=== PATIENT | female | born 1960 | race Caucasian/White ===

== ENCOUNTER 2016-09-21 08:04 | Inpatient (IN) | payer OTHER ==
[2016-09-20 14:39] LABS: HEMATOCRIT 40.1 % (36.0-48.0); HEMOGLOBIN 13.7 g/dL (12.0-16.0)
--- NOTE | ~2016-09-21 | OP ---
Record Of Operation [facility] [address] [place]. [address] NAME: KERRI ORTIZ : 60 STATUS : ADM IN PAT#: [id number] AGE: 55 ADM/REG DATE : 09/21/16 MR#: [id number] REPORT SERV DATE: 09/23/16 DICTATED BY: KATHYA PARIS DATE: 09/22/16 REPORT STATUS : Draft TRANSCRIBED BY: MODL DATE: 09/22/16 DATE OF PROCEDURE: 09/21/2016 PREOPERATIVE DIAGNOSIS: Cecal mass. POSTOPERATIVE DIAGNOSIS: Cecal mass. SURGEON: Kathya Paris MD [employer]IC: Patience Blanchard MD PROCEDURE: Laparoscopic right hemicolectomy. COMPLICATIONS: None. IV FLUIDS: 1250 mL of crystalloid. ESTIMATED BLOOD LOSS: 40 mL. URINE OUTPUT: 250 mL. SPECIMENS: 1. Right colon and distal ileum. 2. Final margins from the staple line. INDICATIONS: This is a 55-year-old female who on her first colonoscopy was found to have some sort of mass effect in the cecum. Biopsies were benign, but a CT scan suggested some sort of submucosal mass. She presented for the above-mentioned procedure. She understood the risks of bleeding, infection, damage to intraabdominal structures, need for further procedures, the risk of anesthetic agents, and she verbalized her willingness to proceed. PROCEDURE IN DETAIL: Preoperatively, the patient was definitively identified in the holding area. It was confirmed that a signed consent was on chart. The patient was then transferred to the operating room and placed supine on the operating room table with the both arms tucked and appropriate padding to all pressure points. After appropriate surgical pause, general endotracheal anesthesia, perioperative antibiotics, and subcutaneous heparin were administered by Anesthesia team. ERAS principles were followed for this case. Don catheter was placed. The patient was carefully strapped to the table with appropriate padding. She was prepped and draped in a normal sterile fashion. After infusion of local anesthetic, a 12-mm supraumbilical incision was performed sharply. The fascia was grasped and elevated, and the abdomen was entered sharply. A 12-mm trocar was placed, and the abdomen was insufflated to 15 mmHg pressure. A 10-mm 30-degree scope was inserted, and the abdomen was completely inspected. There was no evidence of any metastatic disease in the abdomen. It did appear that the area of the mass in her cecum was mostly the appendix. It appeared large and mucin filled. I briefly considered doing a partial cecectomy for diagnostic purposes, but there was also a slight abnormality in the medial aspect of her Record Of Operation [facility] [address] [place]. [address] NAME: KERRI ORTIZ : 60 STATUS : ADM IN PAT#: [id number] AGE: 55 ADM/REG DATE : 09/21/16 MR#: [id number] REPORT SERV DATE: 09/23/16 DICTATED BY: KATHYA PARIS DATE: 09/22/16 REPORT STATUS : Draft TRANSCRIBED BY: MODDu DATE: 09/22/16 cecum distal to the ileocecal valve, and therefore, I decided that a formal oncologic resection needed to be done. The white line of Toldt was taken down and the cecum was grasped and elevated upward. The base of the mesentery was incised, and due to the fact the patient was fairly skinny, the duodenum was immediately evident. The right ureter was identified and preserved. The areolar plane anterior to the sweep of the duodenum was incised and this completed our mobilization of the cecum, which then rested in the left upper quadrant. I completed takedown of the hepatic flexure using the Bovie electrocautery. The ileocolic pedicle was then isolated and divided with LigaSure electrocautery. This was done as proximally as possible, immediately adjacent to the duodenum. Despite that fact, she does not have much fatty tissue at all and I will be surprised to see how many lymph nodes are collected and a small amount of the additional mesentery was divided with LigaSure electrocautery. We confirmed adequate length. The supraumbilical incision was enlarged while the two previously placed 5 mm trocars remained in position. A wound protector was placed, and through one of the 5 mm incisions, we had previously grasped the cecum and it was now handed to a Akte clamp placed through the wound protector. The specimen was exteriorized without difficulty. We selected a spot about 10 cm away from the abnormalities in the cecum and divided first the distal ileum with a 75 mm blue load CANDIDA stapler. The mesentery was divided with the LigaSure electrocautery. There was excellent blood supply. We then divided the ascending colon likewise about 10 cm from the specimen with a single firing of a blue load CANDIDA stapler from [id number] fashion ending with one of the tenia at the apex of the staple line. After dividing the mesentery at this area, the specimen was handed off the field and the pathologist opened it, with findings as mentioned above. We performed our anastomosis and stapled [id number] functional end-to-end fashion. The antimesenteric aspect of the bowel loops were aligned and the apices of the staple lines were trimmed off and a single firing of the 75 mm blue load CANDIDA stapler was fired in longitudinal fashion to perform the longitudinal aspect of the anastomosis. We inspected internally and confirmed no bleeding. The common channel was clamped closed with the staple lines slightly offset with Kate clamp. Due to the size of the colon, it required two firings of the CANDIDA stapler to completely excise the previous staple line and prevent multiple crossings of the staple line. Both surgeons changed gloves, and all the dirty instruments were passed off the field. We palpated the anastomosis, and it was widely patent. 3-0 silk Lembert sutures were placed on all visible staple lines and this also provided hemostasis for some bleeding of the staple line. The anastomosis was returned to the abdomen and the greater omentum was placed over it. After final confirmation of hemostasis, the wound was closed with #1 PDS suture in running fashion. The wound was rinsed out. The two 5 mm trocar sites were closed with 4-0 Monocryl, followed by Dermabond. Midline wound was closed with buried 3-0 Vicryl dermal stitches, followed by dry dressing and tape. The patient was extubated and transferred to the postanesthesia care unit in stable condition. There were no intraoperative complications, and I was present for the entire procedure. ECN/MODL Kathya Paris MD Record Of Operation [address] [place]. [address] NAME: KERRI ORTIZ : 60 STATUS : ADM IN [facility] WITH [facility]#: [id number] AGE: 55 ADM/REG DATE : 09/21/16 MR#: [id number] REPORT SERV DATE: 09/23/16 DICTATED BY: KATHYA PARIS DATE: 09/22/16 REPORT STATUS : Draft TRANSCRIBED BY: AVA DATE: 09/22/16 / [id number] CC: MD ELLA Ann CHRISTOPHER J.
--- NOTE | ~2016-09-21 | DS ---
Discharge Summary [facility] [address] [place]. [address] NAME: KERRI ORTIZ : 60 STATUS : DIS IN PAT#: [id number] AGE: 55 ADM/REG DATE : 09/21/16 MR#: [id number] REPORT SERV DATE: 10/01/16 DICTATED BY: KATHYA PARIS DATE: 10/01/16 REPORT STATUS : Draft TRANSCRIBED BY: AVA DATE: 10/01/16 Data Collection from hospitalization DISCHARGE DIAGNOSES: 1. Cecal mass. 2. Hypothyroidism. CONSULTATIONS: None. PROCEDURES PERFORMED: Laparoscopic right hemicolectomy on 09/21/2016. 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 Colon and ileum final margin - no tumor seen. MEDICATIONS: Levothyroxine 112 mcg daily and Roxicodone 5 mg every four hours as needed. CONDITION AT DISCHARGE: Stable. DISPOSITION: The patient was discharged home on a soft, vegetarian diet with activities as instructed. She would follow up with me on 10/04/2016. HOSPITAL COURSE: This is a 55-year-old female who on her first colonoscopy was found to have some sort of mass effect in the cecum. Biopsies were benign. A CT scan suggested some sort of submucosal mass. Treatment options were discussed and it was elected to proceed with surgical intervention. She was admitted to the hospital for further evaluation and treatment. Upon admission, she was taken to the operating room where she underwent the above-mentioned procedure. She tolerated this well, and there were no complications. On postop day #1, she was afebrile. She looked good. Her abdomen was soft. She was started on a liquid diet. On postop day #2, she did have a bloody bowel movement, but these stopped. Her incisions were clean, dry, and intact. Discharge planning was performed. On 09/24/2016, she was tolerating oral intake. Discharge instructions were given. Pathology results were reviewed. Due to her improved and stable condition, she was discharged home with the above- stated instructions. Information collected by: Valerie Booker I submit the above information as my discharge summary. PAULETTE/AVA Kathya Paris MD / [id number] CC: Kathya Paris MD Discharge Summary [address] [address] NAME: KERRI ORTIZ : 60 STATUS : DIS IN PAT#: [id number] AGE: 55 ADM/REG DATE : 09/21/16 MR#: [id number] REPORT SERV DATE: 10/01/16 DICTATED BY: KATHYA PARIS DATE: 10/01/16 REPORT STATUS : Draft TRANSCRIBED BY: AVA DATE: 10/01/16 [place]ON JARAMILLO
[~2016-09-21 08:04] MED LIST: LEVOTHYROXIN112 MCG PO
[2016-09-21 13:33] LABS: HEMOGLOBIN 11.9 g/dL (12.0-16.0)
[2016-09-21 13:34] LABS: HEMATOCRIT 34.1 % (36.0-48.0)
[2016-09-22 06:21] LABS: HEMOGLOBIN 10.1 g/dL (12.0-16.0); MEAN CORPUS HGB CONC 36.1 g/dL (32.0-36.0); MEAN CORPUSCULAR HEMOGLOB 31.2 pg (26.0-34.0); MEAN CORPUSCULAR VOLUME 86.4 fL (80-100); PLATELET COUNT 153 10/3/uL (150-400); RBC DISTRIBUTION WIDTH 12.6 % (12.0-16.0); RED CELL COUNT 3.24 10/6/uL (4.0-5.6); WHITE BLOOD CELLS 10.9 10/3/uL (4.5-10.5)
[2016-09-22 06:28] LABS: MANUAL DIFF YES %
[2016-09-22 06:29] LABS: BUN (BLOOD UREA NITROGEN) 10 MG/DL (6-23); CALCIUM, SERUM 8.3 MG/DL (8.5-10.4); CHLORIDE, SERUM 104 MMOL/L (96-112); CO2 (CARBON DIOXIDE) 27 MMOL/L (24-34); CREATININE 0.87 MG/DL (0.55-1.02); GFR AFRICAN AMERICAN 87 ML/MIN (>=60); GFR NON AFRICAN AMERICAN 75 ML/MIN (>=60); GLUCOSE, SERUM 134 MG/DL (60-99); POTASSIUM, SERUM 4.7 MMOL/L (3.5-5.3); SODIUM, SERUM 137 MMOL/L (135-148)
[2016-09-22 06:53] LABS: BAND NEUTROPHILS 7 %; BASOPHILS 1 %; BASOPHILS ABSOLUTE (CALC) 0.11 10/3/uL (0.0-0.16); LYMPHOCYTES 12 %; LYMPHOCYTES ABSOLUTE (CALC) 1.31 10/3/uL (0.67-4.30); NEUTROPHILS ABSOLUTE (CALC) 9.48 10/3/uL (2.02-8.40); PLATELET ESTIMATE ADQ (ADEQUATE); RBC MORPHOLOGY NORM (NORMAL); SEGMENTED NEUTROPHIL (0) 80 %; TOTAL NUCLEATED CELLS 100
[2016-09-22 20:55] LABS: HEMATOCRIT 25.8 % (36.0-48.0); HEMOGLOBIN 9.1 g/dL (12.0-16.0)
[2016-09-22 21:40] LABS: INTERNATIONAL NORMAL RATI 1.3 UNITS (-); PARTIAL THROMBO TIME 31.2 SEC (22.5-37.2); PROTIME (NOT ORD) 16.1 SEC (12.0-14.5)
[2016-09-23 06:44] LABS: HEMATOCRIT 23.3 % (36.0-48.0); HEMOGLOBIN 7.9 g/dL (12.0-16.0)
[2016-09-23 09:37] LABS: BUN (BLOOD UREA NITROGEN) 12 MG/DL (6-23); CALCIUM, SERUM 8.1 MG/DL (8.5-10.4); CHLORIDE, SERUM 105 MMOL/L (96-112); CO2 (CARBON DIOXIDE) 30 MMOL/L (24-34); CREATININE 0.88 MG/DL (0.55-1.02); GFR AFRICAN AMERICAN 86 ML/MIN (>=60); GFR NON AFRICAN AMERICAN 74 ML/MIN (>=60); POTASSIUM, SERUM 4.3 MMOL/L (3.5-5.3); SODIUM, SERUM 140 MMOL/L (135-148)
[2016-09-23 09:38] LABS: GLUCOSE, SERUM 105 MG/DL (60-99)
[2016-09-24 07:06] LABS: BASOPHILS 0.3 %; BASOPHILS ABSOLUTE 0.02 10/3/uL (0.0-0.16); EOSINOPHILS 1.3 %; EOSINOPHILS ABSOLUTE 0.08 10/3/uL (0.0-0.53); HEMATOCRIT 22.6 % (36.0-48.0); HEMOGLOBIN 7.6 g/dL (12.0-16.0); IMMATURE GRANULOCYTES 0.2 %; IMMATURE GRANULOCYTES ABSOLUTE 0.01 10/3/uL (0.0-0.11); LYMPHOCYTES 26.7 %; LYMPHOCYTES ABSOLUTE 1.68 10/3/uL (0.67-4.30); MEAN CORPUSCULAR HEMOGLOB 30.6 pg (26.0-34.0); MEAN PLATELET VOLUME 10.1 fL (9.2-13.0); MONOCYTES 6.5 %; MONOCYTES ABSOLUTE 0.41 10/3/uL (0.21-1.20); PLATELET COUNT 132 10/3/uL (150-400); RBC DISTRIBUTION WIDTH 13.1 % (12.0-16.0)
[2016-09-24 07:08] LABS: MANUAL DIFF NO %; MEAN CORPUS HGB CONC 33.6 g/dL (32.0-36.0); MEAN CORPUSCULAR VOLUME 91.1 fL (80-100); RED CELL COUNT 2.48 10/6/uL (4.0-5.6); WHITE BLOOD CELLS 6.3 10/3/uL (4.5-10.5)
[2016-09-24] MEDS ORDERED: OXYCOD PO (09:48)
== END 2016-09-24 12:02 | disposition home or self-care (01) | DRG 330 ==
LOC: SDC/OF 08:04 → PACU 12:34 → 5SO 13:44
PROVIDERS: Specialist; Surgery
PROC: 3E0T3CZ (ICD-10-PCS; 2016-09-21)
PROC: 0DB Gastrointestinal System, Excision (ICD-10-PCS; principal; 2016-09-21 09:45)
DX: C18.0 Malignant neoplasm of cecum (principal); D62 Acute posthemorrhagic anemia; K92.1 Melena; E03.9 Hypothyroidism, unspecified; Z79.899 Other long term (current) drug therapy
CPT/HCPCS: 36415; 80048; 82378; 85014; 85018; 85025; 85610; 85730; 86850; 86900; 86901; 88304; 88309; 88331; 93005; A9270-GY; J0690; J1170; J1885; J2250; J2270; J2405; J2550; J2710; J2795; J3010